=== PATIENT | male | born 1995 | race Caucasian/White ===

== ENCOUNTER 2017-11-15 08:42 | Day surgery (SDC) | payer SELFPAY ==
--- NOTE | 2017-11-15 09:16 | DR.N/VMALE ---
HPI - Time Seen Time seen: 09:10 - Primary Care Physician Primary Care Physician: LEELA - HPI Comment HPI Comment: DENIES DYSURIA OR HEMATURIA. WORSE TODAY. - Complaints Chief Complaint Doctors Comments: RIGHT SIDED ABDOMINAL PAIN TIMES 5 DAYS WITH NAUSEA, NO FEVER. Chief Complaint:: PT C/O RIGHT SIDE PAIN UNDER HIS RIBS AND N/V/D.. PT C/O SHARP PAINS THAT STAY AND PT C/O WALKING OR BENDING MAKES IT WORSE.. - Reviewed Nurses Notes Reviewed: Yes - Source History Provided: Patient - Mode of Arrival Mode of Arrival: Ambulatory - Timing Onset of Chief Complaint: 11/10/17 - Context Onset: Spontaneous Recent: None History of: None - Quality Quality: Other (NAUSEATED) - Associated Signs and Symptoms Abdominal Pain Quality: Sharp Abdominal Pain Location: Epigastric, RUQ, RLQ Symptoms: Abdominal Pain PMH - PMH Past Medical History: Yes Past Medical History Comment: HEART MUR MUR. Past Surgical History: Yes Surgical History: Ortho Surgery - Family History History of Family Medical Conditions: Yes Family Medical History: Diabetes Mellitus, Hypertension - Social History Does patient currently use any type of tobacco product: No Have you used tobacco products in the last 12 months: No Type of Tobacco Use: None Does any household member use tobacco: No Alcohol Use: Rarely Do you use any recreational Drugs:: No Lives With: Family Lives Where: Home - infectious screening In the last 2 months have you had wt loss of >10#?: NO Have you had fever, night sweats or hemotysis?: No Have you traveled outside the country in the last 6 months?: No Isolation: Airborn/Negative Pressure ROS - Review of Systems Constitutional: No Symptoms Reported Eyes: No Symptoms Reported ENTM: No Symptoms Reported Respiratoy: No Symptoms Reported Cardiovascular: No Symptoms Reported Gastrointestinal/Abdominal: Abdominal Pain, Nausea, Vomiting Genitourinary: No Symptoms Reported Neurological: No Symptoms Reported Musculoskeletal: Muscle Pain Integumentary: No Symptoms Reported Hematologic/Lymphatic: No Symptoms Reported Endocrine: No Symptoms Reported All Other Systems: Reviewed and Negative PE - Vital Signs Vitals: Temperature 98.6 F Pulse Rate 82 Respiratory Rate 22 Blood Pressure 138/78 O2 Sat by Pulse Oximetry 97 - General Limitations: No Limitations General Appearance: Alert - Head Head Exam: Normal Inspection - Eyes Eye exam: Normal Appearance - ENT ENT Exam: Normal External Ear Exam - Neck Neck Exam: Trachea Midline - Chest Chest Inspection: Symmetric Chest Wall Rise - Respiratory Respiratory Exam: Normal Lung Sounds Bilat Respiratory Exam: Bilateral Clear to Auscultation - Abdominal Exam Abdominal Exam: Normal Bowel Sounds, Soft, Tenderness, Rebound Abdominal Tenderness: RUQ, RLQ, Moderate - Rectal Rectal Exam: Deferred - Exam: Male: Deferred - Extremities Extremities Exam: Normal Inspection - Back Back Exam: Normal Inspection - Neurologic Neurological Exam: Alert, Oriented X3 - Psychiatric Psychiatric Exam: Anxious - Skin Skin Exam: Normal Color MDM - Additional Information Obtained Additional Information Obtained From: Family - Differential Diagnosis Differential Diagnosis: Considerations may Include:: Appendicitis, Bowel Obstruction, Cholecystitis, Gastritis, Gastroenteritis, Pancreatitis, Urinary Tract Infection, Urolithiasis Course - Treatment Treatment: SEE ORDERS - Consultation Consultation Comments: DISSCUSS PATIENT WITH DR. PA. WILL TAKE TO SURGERY. WILL DISCUSS WITH DR. AGUILLON TO ADMIT AND HE ACCEPTED. - Education/Counseling Education/Counseling: Patient, Family, Education Educated On: Diagnosis, Needs for Follow Up ROR - Labs Reviewed Laboratory Results Reviewed?: Yes Result Diagrams: 11/15/17 09:32 11/15/17 09:32 Laboratory: WBC 10.6 X10^3/uL (3.6-10.0) H 11/15/17 09:32 RBC 4.70 X10^6/uL (4.7-6.0) 11/15/17 09:32 Hgb 14.5 g/dL (13.5-18.0) 11/15/17 09:32 Hct 41.8 % (42.0-54.0) L 11/15/17 09:32 MCV 89.0 fL (80.0-100.0) 11/15/17 09:32 MCH 30.9 pg (27.0-34.0) 11/15/17 09:32 MCHC 34.8 g/dL (33.0-35.0) 11/15/17 09:32 RDW 12.8 % (11.6-16.5) 11/15/17 09:32 Plt Count 170 X10^3/uL (150.0-450.0) 11/15/17 09:32 MPV 9.2 fL (7.4-11.0) 11/15/17 09:32 Neut % 80.5 % (42.0-75.0) H 11/15/17 09:32 Lymph % 10.8 % (21.0-51.0) L 11/15/17 09:32 [place] % 7.8 % (0.0-13.0) 11/15/17 09:32 Eos % 0.5 % (0.9-2.9) L 11/15/17 09:32 Baso % 0.4 % (0.2-1.0) 11/15/17 09:32 Neut # 8.5 x10^3/uL (2.2-4.8) H 11/15/17 09:32 Lymph # 1.1 X10^3/uL (1.3-2.9) L 11/15/17 09:32 [place] # 0.8 x10^3/uL (0.3-0.8) 11/15/17 09:32 Eos # 0.1 x10^3/uL (0.0-0.2) 11/15/17 09:32 Baso # 0.0 X10^3/uL (0.0-0.1) 11/15/17 09:32 Absolute Nucleated RBC 0.0 /100WBC 11/15/17 09:32 Sodium 140 mmol/L (136-145) 11/15/17 09:32 Corrected Sodium 140 mmol/L (136-145) 11/15/17 09:32 Potassium 3.7 mmol/L (3.5-5.1) 11/15/17 09:32 Chloride 104 mmol/L (98-107) 11/15/17 09:32 Carbon Dioxide 29.5 mmol/L (21-32) 11/15/17 09:32 BUN 15 mg/dL (7-18) 11/15/17 09:32 Creatinine 1.13 mg/dL (0.70-1.30) 11/15/17 09:32 Est GFR (MDRD) Af Amer > 60 (>60) 11/15/17 09:32 Est GFR (MDRD) Non-Af > 60 (>60) 11/15/17 09:32 Glucose 111 mg/dL (65-99) H 11/15/17 09:32 Calcium 8.9 mg/dL (8.5-10.1) 11/15/17 09:32 Corrected Calcium TNP 11/15/17 09:32 Total Bilirubin 0.60 mg/dL (0.2-1.0) 11/15/17 09:32 AST 20 Units/L (15-37) 11/15/17 09:32 ALT 30 Units/L (12-78) 11/15/17 09:32 Alkaline Phosphatase 92 Units/L (46-116) 11/15/17 09:32 Total Protein 7.7 g/dL (6.4-8.2) 11/15/17 09:32 Albumin 4.1 g/dL (3.4-5.0) 11/15/17 09:32 Globulin 3.6 g/dL (2.5-4.5) 11/15/17:32 Albumin/Globulin Ratio 1.1 Ratio (1.1-2.1) 11/15/17:32 Amylase 30 Units/L (25-115) 11/15/17 09: Lipase 69 Units/L (73-393) L 11/15/17 09:32 Specimen Type Random urine 11/15/17: Urine Color Yellow (YELLOW) 11/15/17 09: Urine Appearance Slightly hazy (CLEAR) 11/15/17 09: Urine pH 6.0 (5.0 - 8.0) 11/15/17: Ur Specific [place] 1.020 (1.000-1.030) 11/15/17 09:23 Urine Protein 2+ (NEGATIVE) 11/15/17 09: Urine Glucose (UA) Negative (NEGATIVE) 11/15/17: Urine Ketones 1+ (NEGATIVE) 11/15/17: Urine Occult Blood Negative (NEGATIVE) 11/15/17: Urine Nitrite Negative (NEGATIVE) 11/15/17 09:23 Urine Bilirubin 1+ (NEGATIVE) 11/15/17 09:23 Urine Urobilinogen 2+ (NORMAL) 11/15/17: Ur Leukocyte Esterase 1+ (NEGATIVE) 11/15/17 09:23 Urine RBC None seen /HPF (NEGATIVE) 11/15/17 09:23 Urine WBC Rare /HPF (NEGATIVE) 11/15/17 09:23 Ur Squamous Epith Cells Rare /HPF (NEGATIVE) 11/15/17: Amorphous Sediment 1+ /HPF (NEGATIVE) 11/15/17 09:23 Urine Bacteria Negative /HPF (NEGATIVE) 11/15/17 09:23 Hyaline Casts Rare /LPF (NEGATIVE) 11/15/17 09:23 Ur Culture Indicated? No/not indicated 11/15/17 09:23 H. pylori IgG Antibody Negative (NEGATIVE) 11/15/17 09:32 - XRAY XRAY Interpreted by: Radiologist XRAY Findings: REPORT DISCUSS WITH PATIENT ABD FAMILY. - Diagnosis Discharge Problem: Abdominal pain Qualifiers: Abdominal location: right lower quadrant Qualified Code(s): R10.31 - Right lower quadrant pain Acute appendicitis Qualifiers: Acute appendicitis type: with localized peritonitis Qualified Code(s): K35.3 - Acute appendicitis with localized peritonitis - Discharge Plan Disposition: 05 XFER OTHER Condition: Stable - Follow ups/Referrals - Instructions
[2017-11-15 09:44] LABS: BASOPHILS % (AUTO) 0.4 % (0.2-1.0); EOSINOPHILS # (AUTO) 0.1 x10^3/uL (0.0-0.2); EOSINOPHILS % (AUTO) 0.5 % (0.9-2.9); HEMATOCRIT 41.8 % (42.0-54.0); HEMOGLOBIN 14.5 g/dL (13.5-18.0); LYMPHOCYTES # (AUTO) 1.1 X10^3/uL (1.3-2.9); LYMPHOCYTES % (AUTO) 10.8 % (21.0-51.0); MEAN CORPUSCULAR HEMOGLOBIN 30.9 pg (27.0-34.0); MEAN CORPUSCULAR HGB CONC 34.8 g/dL (33.0-35.0); MEAN PLATELET VOLUME 9.2 fL (7.4-11.0); MONOCYTES # (AUTO) 0.8 x10^3/uL (0.3-0.8); MONOCYTES % (AUTO) 7.8 % (0.0-13.0); NEUTROPHILS # (AUTO) 8.5 x10^3/uL (2.2-4.8); NEUTROPHILS % (AUTO) 80.5 % (42.0-75.0); PLATELET COUNT 170 X10^3/uL (150.0-450.0); RED CELL DISTRIBUTION WIDTH 12.8 % (11.6-16.5); WHITE BLOOD COUNT 10.6 X10^3/uL (3.6-10.0)
[2017-11-15 09:52] LABS: BILIRUBIN,URINE 1+ (NEGATIVE); BLOOD/HEMOGLOBIN,URINE NEGATIVE (NEGATIVE); GLUCOSE, URINE NEGATIVE (NEGATIVE); KETONES,URINE 1+ (NEGATIVE); LEUKOCYTE ESTERASE ,URINE 1+ (NEGATIVE); NITRITES,URINE NEGATIVE (NEGATIVE); PROTEIN,URINE 2+ (NEGATIVE); UROBILINOGEN,URINE 2+ (NORMAL)
[2017-11-15 09:58] LABS: ALANINE AMINOTRANSFERASE 30 Units/L (12-78); ALBUMIN 4.1 g/dL (3.4-5.0); ALKALINE PHOSPHATASE 92 Units/L (46-116); AMYLASE 30 Units/L (25-115); ASPARTATE AMINO TRANSFERASE 20 Units/L (15-37); BLOOD UREA NITROGEN 15 mg/dL (7-18); CALCIUM 8.9 mg/dL (8.5-10.1); CARBON DIOXIDE 29.5 mmol/L (21-32); CHLORIDE 104 mmol/L (98-107); COR NA(FOR HYPERGLY) 140 mmol/L (136-145); CREATININE 1.13 mg/dL (0.70-1.30); LIPASE 69 Units/L (73-393); SODIUM 140 mmol/L (136-145); TOTAL PROTEIN 7.7 g/dL (6.4-8.2); eGFR BLACK RACES > 60 (>60); eGFR NON BLACK RACES > 60 (>60)
--- NOTE | 2017-11-15 10:07 | CT ---
HISTORY: Right-sided abdominal pain with nausea and vomiting x1 week. Study: CT abdomen and pelvis without contrast Comparison: None. Technique: Multiple axial images of the abdomen and pelvis were obtained from the lung bases to the pubic symphy sis without the administration of IV contrast. Dose reduction techniques including Automated Exposur e Control (AEC) and adjustment of mA and kV were utilized. Findings: Limited study secondary to lack of IV and oral contrast. The visualized portions of the lung bases are unremarkable. The liver, spleen, pancreas, kidneys, an d adrenal glands are unremarkable in their CT appearance. The gallbladder is unremarkable in its CT a ppearance. Limited evaluation of the large and small bowel secondary to the lack of oral contrast an d collapse. The appendix is dilated to 16 mm with marked periappendiceal stranding and trace free flu id. No free air to suggest perforation or focal fluid collection to suggest abscess formation. Remain ing large and small bowel appear normal. The urinary bladder is grossly unremarkable. The bony struc tures are grossly intact. IMPRESSION: Acute appendicitis without free air to suggest perforation or focal fluid collection to suggest abscess formation. Reported By:
[2017-11-15 10:16] LABS: APPEARANCE,URINE SLIGHTLY HAZY (CLEAR); COLOR,URINE YELLOW (YELLOW)
[2017-11-15 10:18] LABS: AMORPHOUS SEDIMENT,UR 1+ /HPF (NEGATIVE); BACTERIA,URINE NEGATIVE /HPF (NEGATIVE); HYALINE CASTS, URINE RARE /LPF (NEGATIVE); RBC,URINE NONE SEEN /HPF (NEGATIVE); SQUAMOUS EPITHELIAL CELL,UR RARE /HPF (NEGATIVE)
[2017-11-15] MEDS ORDERED: NS 100 ML IV + SPIKE MINIBAG* 100 ML IV ONE (10:45)
[2017-11-15] MEDS ORDERED: ZOSYN VIAL 3.375 GM IV ONE (10:45)
[2017-11-15] MEDS ORDERED: ZOSYN VIAL 3.375 GM 3.375 GM in NS 100 ML IV + SPIKE MINIBAG* 100 ML IV ONE (10:46)
[2017-11-15] MEDS ORDERED: NS 1000 ML 1,000 ML ONE (10:46)
[2017-11-15] MEDS ORDERED: NS IRRIGATION 3000 ML 3,000 ML IR ONE (11:21)
[2017-11-15] MEDS ORDERED: FENTANYL INJ 250 mcg ONE (11:22)
[2017-11-15] MEDS ORDERED: ZOFRAN INJ 4 MG VIAL IVP PRN ×2 (12:22→12:30)
[2017-11-15] MEDS: DILAUDID INJ IVP PRN ×4 (12:25→23:28)
[2017-11-15] MEDS ORDERED: BENADRYL INJ 50 MG VIAL IVP PRN (12:30)
[2017-11-15] MEDS ORDERED: PHENERGAN INJ 25 MG IVP PRN (12:30)
[2017-11-15] MEDS ORDERED: REGLAN INJ 10 MG VIAL IVP PRN (12:30)
[2017-11-15] MEDS: ZOSYN VIAL 3.375 GM 3.375 GM in NS 100 ML IV + SPIKE MINIBAG* 100 ML IV SCH ×2 (14:16→23:26)
[2017-11-15] MEDS ORDERED: DILAUDID INJ ONE ×2 (14:25→23:19)
[2017-11-15 15:16] VITALS: BMI 19.0
[2017-11-15] MEDS ORDERED: VERSED ONE (15:17)
[2017-11-15] MEDS ORDERED: LTA KIT LIDOCAINE 4% ONE (15:17)
[2017-11-15] MEDS ORDERED: ZOFRAN INJ 4 MG VIAL ONE (15:17)
[2017-11-15] MEDS ORDERED: XYLOCAINE 2 % (PLAIN) ONE (15:17)
[2017-11-15] MEDS ORDERED: ROBINUL ONE (15:17)
[2017-11-15] MEDS ORDERED: SUPRANE IN ONE (15:17)
[2017-11-15] MEDS ORDERED: NEOSTIGMINE INJ ONE (15:17)
[2017-11-15] MEDS ORDERED: DIPRIVAN VIAL ONE (15:17)
[2017-11-15] MEDS ORDERED: QUELICIN (OR ANECTINE) ONE (15:17)
[2017-11-15] MEDS ORDERED: NORCURON INJ 10 MG VIAL ONE (15:17)
--- NOTE | 2017-11-15 17:44 | OR.GENERIC ---
Post-Op Note Generic - Post-Op Note Operative Report: Pt underwent Laparoscopic appendectomy . finding : acute suppurative appendicitis ..it was lateral to the Rt colon and partially peritonalized ,, EBL 20 cc YRIS was left in place ..
[2017-11-15] MEDS: NS 1000 ML 1,000 ML IV SCH (18:44)
[2017-11-15] MEDS: D5 1/2 NS 1000 ML 1,000 ML IV SCH ×2 (18:45→23:27)
[2017-11-15] MEDS ORDERED: DUONEB 0.5 MG/3 MG ONE (20:17)
[2017-11-16] MEDS: ZOSYN VIAL 3.375 GM 3.375 GM in NS 100 ML IV + SPIKE MINIBAG* 100 ML IV SCH (06:46)
[2017-11-16] MEDS: NS 1000 ML 1,000 ML IV SCH (06:48)
[2017-11-16] MEDS ORDERED: DILAUDID INJ ONE (07:53)
[2017-11-16] MEDS: DILAUDID INJ IVP PRN (07:55)
[2017-11-16 10:39] VITALS: BP 151/78
== END 2017-11-16 11:55 | disposition home or self-care (01) ==
LOC: ER 08:57 → SURG1 10:43 → OBS 12:38 → SURG1 11-16 11:55
PROVIDERS: ATTEND Surgery
PROC: 0DTJ4ZZ Resection of Appendix, Percutaneous Endoscopic Approach (ICD-10-PCS; principal; 2017-11-15 10:15)
DX: K35.3 Acute appendicitis with localized peritonitis (principal); R10.31 Right lower quadrant pain
CPT/HCPCS: 36415; 74176; 80053; 81001; 82150; 83690; 85025; 86677; 96365; 96374; 96375; 99282; 99284; A4216; A4222; J0330; J1170; J2001; J2250; J2405; J2543; J2710; J3010; J3490; J7042; J7620